=== PATIENT | male | born 1990 | race American Indian/Alaskan Native ===

== ENCOUNTER 2020-08-11 17:02 | Emergency (ER) | payer SELFPAY ==
--- NOTE | 2020-08-11 20:15 | Emergency Department Report ---
ED Rash HPI - HPI Chief Complaint: Skin Rash Stated Complaint: INFLAMMATION OF HANDS Duration: 2 Days Location: Upper Extremities (bilateral hands) Suspected Cause: Unknown Rash Symptoms: Yes Itching (Bilateral hands and neck), No Facial Swelling, No Tongue/Oral Swelling, No Breathing Difficulties, No Choking Sensation, No Wheezing/Dyspnea, No Peeling, No Blistering, No Fever, No Lightheaded, No Malaise, No Myalgias Severity: mild Other History: Patient is a 30-year-old -[place] male with no past medical history presents to the ED with complaint of acute onset persistent erythematous maculopapular itchy rashes on the hands bilaterally and also on the posterior neck for the last 2 days. Patient states that his has had simil ar symptoms about a week ago. Patient states that he does not remember anything that he may have been in contact with except for mixing chemicals at work. Patient denies fever, chills, nausea, vomiting, dizziness, syncope, cough, swollen lips or tongue, dysphagia, dysphonia, cough or wheezing, chest pain or shortness of breath and abdominal pain or diarrhea. Patient denies any new foods or detergents at home. ED Review of Systems ROS: Stated complaint: INFLAMMATION OF HANDS Other details as noted in HPI Constitutional: denies: chills, fever Eyes: denies: eye pain, eye discharge, vision change ENT: denies: ear pain, throat pain Respiratory: denies: cough, shortness of breath, wheezing Cardiovascular: denies: chest pain, palpitations Endocrine: no symptoms reported Gastrointestinal: denies: abdominal pain, nausea, diarrhea Genitourinary: denies: urgency, dysuria Musculoskeletal: denies: back pain, joint swelling, arthralgia Skin: rash (Diffuse bilateral mild erythematous maculopapular rashes on the hands bilaterally and also on the posterior neck), change in color, pruritus. denies: lesions Neurological: denies: headache, weakness, paresthesias Psychiatric: denies: anxiety, depression Hematological/Lymphatic: denies: easy bleeding, easy bruising ED Past Medical Hx - Past Medical History Previous Medical History?: No - Surgical History Past Surgical History?: No - Medications Home Medications: Home Medications Medication Instructions Recorded Confirmed Last Taken Type Famotidine [Pepcid] 20 mg PO BID #30 tablet 08/11/20 Unknown Rx Hydrocortisone 0.5% (Nf) 1 applicatio TP TID #1 tube 08/11/20 Unknown Rx [Hydrocortisone 0.5% OINT] diphenhydrAMINE [Benadryl CAP] 25 mg PO Q6HR PRN #30 capsule 08/11/20 Unknown Rx predniSONE [Deltasone] 40 mg PO QDAY #10 tab 08/11/20 Unknown Rx Rash Exam - Exam General: Vital signs noted. No distress. Alert and acting appropriately. HEENT: No Periorbital Edema, No Conjuctival Injection, No Chemosis, No Perioral Edema, No Tongue Edema, No Uvular Edema, No Compromised Airway, No Drooling Lungs: Yes Good Air Exchange (Normal Breath Sounds), No Wheezes, No Ronchi, No Stridor, No Cough, No Labored Respirations, No Retractions, No Use of Accessory Muscles, No Other Abnormal Lung Sounds Heart: Yes Regular, No Murmur Skin: Yes Urticarial Rash (Bilateral hands and posterior neck), Yes Maculopapular Rash (Bilateral hands and posterior neck), Yes Erythema (Bilateral hands and posterior neck), No Morbilliform rash, No Bulla(e), No Excoriations, No Weeping, No Tenderness, No Edema, No Encrustations Other: Positive: Abdomen Normal, Neurologic Normal, Musculoskeletal Normal ED Course Vital Signs 08/11/20 17:25 Temperature 98.1 F Pulse Rate 77 Respiratory 16 Rate Blood Pressure 124/87 O2 Sat by Pulse 99 Oximetry ED Medical Decision Making - Medical Decision Making This is a 30-year-old -[place] male with no past medical history presents to the ED with complaint of acute onset persistent erythematous maculopapular itchy rashes on the hands bilaterally and also on the posterior neck for the last 2 days. Patient states that his has had similar symptoms about a week ago. Patient states that he does not remember anything that he may have been in contact with except for mixing chemicals at work. In the ED, patient is alert and oriented x3 and is not in distress. Patient was treated for acute allergic reaction with oral steroids and Pepcid. Patient was discharged home on medications and was advised to follow-up with his primary care physician in 5 to 7 days for reevaluation. Patient was also advised return to the ED immediately if symptoms get worse. - Differential Diagnosis Allergic reaction; urticaria; irritant dermatitis; contact dermatitis Critical care attestation.: If time is entered above; I have spent that time in minutes in the direct care of this critically ill patient, excluding procedure time. ED Disposition Clinical Impression: Itching with irritation, Rash and nonspecific skin eruption Irritant contact dermatitis Qualifiers: Contact dermatitis trigger: other trigger Qualified Code(s): L24.89 - Irritant contact dermatitis due to other agents; L24.8 - Irritant contact dermatitis due to other agents Disposition: DC- TO HOME OR SELFCARE Is pt being admited?: No Does the pt Need Aspirin: No Condition: Stable Instructions: Contact Dermatitis (ED), Acute Rash (ED) Additional Instructions: Take medication with food, drink plenty of fluids and follow-up with your primary care physician in 5 to 7 days for reevaluation. Return to the ED immediately if symptoms get worse. Prescriptions: diphenhydrAMINE [Benadryl CAP] 25 mg PO Q6HR PRN #30 capsule PRN Reason: Allergy Symptoms predniSONE [Deltasone] 40 mg PO QDAY #10 tab Hydrocortisone 0.5% (Nf) [Hydrocortisone 0.5% OINT] 1 applicatio TP TID #1 tube Famotidine [Pepcid] 20 mg PO BID #30 tablet Referrals: [facility] [Provider Group] - 3-5 Days Time of Disposition: 20:17 Print Language: BURMESE
[2020-08-11] MEDS ORDERED: predniSONE 50 MG TAB PO ONE (20:19)
[2020-08-11] MEDS ORDERED: FAMOTIDINE 20 MG TAB PO ONE (20:19)
[2020-08-11 21:00] VITALS: BP 119/78
== END 2020-08-11 20:55 | disposition home or self-care (01) ==
LOC: ED 17:02
DX: L24.9 Irritant contact dermatitis, unspecified cause (principal); Z79.899 Other long term (current) drug therapy
CPT/HCPCS: 99282; J7512

== ENCOUNTER 2021-04-20 13:58 | Emergency (ER) | payer SELFPAY ==
[2021-04-20 15:01] VITALS: BP 137/85
[2021-04-20] MEDS ORDERED: TETANUS,DIPH,PERTUSS(ACELL) VACCINE 0.5 ML SYRINGE IM ONE (15:08)
--- NOTE | 2021-04-20 15:15 | Emergency Department Report ---
ED General Adult HPI - General Chief complaint: Wound/Laceration Stated complaint: WORK INJURY/LT WRIST Time Seen by Provider: 04/20/21 15:04 Source: patient Mode of arrival: Ambulatory Limitations: No Limitations - History of Present Illness Initial comments: 30-year-old -[place] male patient presents with laceration to left wrist today while at work. Patient states he cut his wrist on a metal pipe. He states his last tetanus vaccine is unknown. He denies any redness, difficulty moving his wrist, or numbness/tingling/weakness in his wrist or hand. -: Sudden - Related Data Previous Rx's Medication Instructions Recorded Last Taken Type Famotidine [Pepcid] 20 mg PO BID #30 tablet 08/11/20 Unknown Rx Hydrocortisone 0.5% (Nf) 1 applicatio TP TID #1 tube 08/11/20 Unknown Rx [Hydrocortisone 0.5% OINT] diphenhydrAMINE [Benadryl CAP] 25 mg PO Q6HR PRN #30 capsule 08/11/20 Unknown Rx predniSONE [Deltasone] 40 mg PO QDAY #10 tab 08/11/20 Unknown Rx cephALEXin [Keflex] 500 mg PO Q12HR 7 Days #14 cap 04/20/21 Unknown Rx Allergies Allergy/AdvReac Type Severity Reaction Status Date / Time No Known Allergies Allergy Unverified 08/11/20 20:39 ED Review of Systems ROS: Stated complaint: WORK INJURY/LT WRIST Other details as noted in HPI Musculoskeletal: denies: joint swelling, arthralgia Skin: denies: change in color Neurological: denies: numbness, paresthesias ED Past Medical Hx - Past Medical History Previous Medical History?: No - Surgical History Past Surgical History?: No - Social History Smoking Status: Current Every Day Smoker - Medications Home Medications: Home Medications Medication Instructions Recorded Confirmed Last Taken Type Famotidine [Pepcid] 20 mg PO BID #30 tablet 08/11/20 Unknown Rx Hydrocortisone 0.5% (Nf) 1 applicatio TP TID #1 tube 08/11/20 Unknown Rx [Hydrocortisone 0.5% OINT] diphenhydrAMINE [Benadryl CAP] 25 mg PO Q6HR PRN #30 capsule 08/11/20 Unknown Rx predniSONE [Deltasone] 40 mg PO QDAY #10 tab 10/09/20 Unknown Rx cephALEXin [Keflex] 500 mg PO Q12HR 7 Days #14 cap 04/20/21 Unknown Rx ED Physical Exam - General Limitations: No Limitations General appearance: alert, in no apparent distress - Head Head exam: Present: atraumatic, normocephalic - Eye Eye exam: Present: normal appearance - Respiratory Respiratory exam: Absent: respiratory distress - Cardiovascular Cardiovascular Exam: Present: regular rate - Neurological Exam Neurological exam: Present: alert, oriented X3 - Psychiatric Psychiatric exam: Present: normal affect, normal mood - Skin Skin exam: Present: warm, dry, normal color. Absent: intact (Approximately 3 cm diagonal laceration noted to left inner wrist; no active bleeding noted), rash ED Course Vital Signs 04/20/21 14:56 Temperature 98.3 F Pulse Rate 71 Respiratory 18 Rate Blood Pressure 137/85 O2 Sat by Pulse 100 Oximetry - Laceration /Wound Repair Wrist Wound's Depth, Shape: superficial, linear Wound Explored: no foreign body removed Irrigated w/ Saline (ccs): 50 Wound Repaired With: Steri-strips, Dermabond Layer Closure?: No Progress: No bleeding occurred. Patient tolerated procedure well without any immediate complications. ED Medical Decision Making - Medical Decision Making 30-year-old -[place] male patient presents with laceration to left wrist today while at work. Patient states he cut his wrist on a metal pipe. He states his last tetanus vaccine is unknown. He denies any redness, difficulty moving his wrist, or numbness/tingling/weakness in his wrist or hand. Tetanus updated. Dermabond and Steri-Strips used to repair wound. Will cover patient with Keflex given dirty pipe. Discussed wound care and strict return precautions in detail with patient who verbalized understanding. He is well- appearing his vitals are within normal limits he is stable for discharge home. Critical care attestation.: If time is entered above; I have spent that time in minutes in the direct care of this critically ill patient, excluding procedure time. ED Disposition Clinical Impression: Laceration of wrist Disposition: DC-01 TO HOME OR SELFCARE Is pt being admited?: No Condition: Stable Instructions: Sterile Tape Wound Care, Nonsutured Laceration Care Prescriptions: cephALEXin [Keflex] 500 mg PO Q12HR 7 Days #14 cap Referrals: [facility] [Provider Group] - 3-5 Days
== END 2021-04-20 15:50 | disposition home or self-care (01) ==
LOC: ED 13:58
DX: S61.512A Laceration without foreign body of left wrist, initial encounter (principal); F17.200 Nicotine dependence, unspecified, uncomplicated; Z79.899 Other long term (current) drug therapy; X58.XXXA Exposure to other specified factors, initial encounter; Y93.89 Activity, other specified; Y92.89 Other specified places as the place of occurrence of the external cause; Y99.0 Civilian activity done for income or pay
CPT/HCPCS: 90471; 90715

== ENCOUNTER 2022-05-12 13:39 | Emergency (ER) | payer SELFPAY ==
--- NOTE | 2022-05-12 15:35 | Emergency Department Report ---
ED General Adult HPI - General Chief complaint: Skin/Abscess/Foreign Body Stated complaint: POSSIBLE SPIDER BITE Time Seen by Provider: 05/12/22 15:17 Source: patient Mode of arrival: Ambulatory Limitations: No Limitations - History of Present Illness Initial comments: 32-year-old male reports to the ER with complaints of insect bite possible spider to the left arm. Patient reports noticing the swelling 1 day after being bitten by something. Patient reports no other acute symptoms. Denies fever, chills, weakness to arm. - Related Data Previous Rx's Medication Instructions Recorded Last Taken Type Famotidine [Pepcid] 20 mg PO BID #30 tablet 08/11/20 Unknown Rx Hydrocortisone 0.5% (Nf) 1 applicatio TP TID #1 tube 08/11/20 Unknown Rx [Hydrocortisone 0.5% OINT] diphenhydrAMINE [Benadryl CAP] 25 mg PO Q6HR PRN #30 capsule 08/11/20 Unknown Rx predniSONE [Deltasone] 40 mg PO QDAY #10 tab 08/11/20 Unknown Rx cephALEXin [Keflex] 500 mg PO Q12HR 7 Days #14 cap 04/20/21 Unknown Rx Amoxicillin/K Clav Tab [Augmentin 1 tab PO Q12HR 7 Days #14 tab 05/12/22 Unknown Rx 875 mg] Allergies Allergy/AdvReac Type Severity Reaction Status Date / Time No Known Allergies Allergy Unverified 08/11/20 20:39 ED Review of Systems ROS: Stated complaint: POSSIBLE SPIDER BITE Other details as noted in HPI Constitutional: denies: chills, fever Eyes: denies: eye pain, eye discharge, vision change ENT: denies: ear pain, throat pain Respiratory: denies: cough, shortness of breath, wheezing Cardiovascular: denies: chest pain, palpitations Endocrine: no symptoms reported Gastrointestinal: denies: abdominal pain, nausea, diarrhea Genitourinary: denies: urgency, dysuria Musculoskeletal: denies: back pain, joint swelling, arthralgia Skin: rash, other (AbscessLike structure to the proximal area of the left forearm.). denies: lesions Neurological: denies: headache, weakness, paresthesias Psychiatric: denies: anxiety, depression Hematological/Lymphatic: denies: easy bleeding, easy bruising ED Past Medical Hx - Past Medical History Previous Medical History?: No - Surgical History Past Surgical History?: No - Social History Smoking Status: Never Smoker - Medications Home Medications: Home Medications Medication Instructions Recorded Confirmed Last Taken Type Famotidine [Pepcid] 20 mg PO BID #30 tablet 08/11/20 Unknown Rx Hydrocortisone 0.5% (Nf) 1 applicatio TP TID #1 tube 08/11/20 Unknown Rx [Hydrocortisone 0.5% OINT] diphenhydrAMINE [Benadryl CAP] 25 mg PO Q6HR PRN #30 capsule 08/11/20 Unknown Rx predniSONE [Deltasone] 40 mg PO QDAY #10 tab 08/11/20 Unknown Rx cephALEXin [Keflex] 500 mg PO Q12HR 7 Days #14 cap 04/20/21 Unknown Rx Amoxicillin/K Clav Tab [Augmentin 1 tab PO Q12HR 7 Days #14 tab 05/12/22 Unknown Rx 875 mg] ED Physical Exam - General Limitations: No Limitations General appearance: alert, in no apparent distress - Head Head exam: Present: atraumatic, normocephalic - Eye Eye exam: Present: normal appearance - ENT ENT exam: Present: mucous membranes moist - Neck Neck exam: Present: normal inspection - Respiratory Respiratory exam: Present: normal lung sounds bilaterally. Absent: respiratory distress - Cardiovascular Cardiovascular Exam: Present: regular rate, normal rhythm. Absent: systolic murmur, diastolic murmur, rubs, gallop - GI/Abdominal GI/Abdominal exam: Present: soft, normal bowel sounds - Rectal Rectal exam: Present: deferred - Extremities Exam Extremities exam: Present: normal inspection - Back Exam Back exam: Present: normal inspection - Neurological Exam Neurological exam: Present: alert, oriented X3 - Psychiatric Psychiatric exam: Present: normal affect, normal mood - Skin Skin exam: Present: warm, dry, intact, normal color. Absent: rash - Expanded Skin Exam Expanded Distribution of rash: LUE (Proximal left forearm with abscess-like structure w ith warmth presentabscess is deep within the tissue not I&D able) Description of rash: Present: tenderness, erythematous, swelling ED Course Vital Signs 05/12/22 14:28 Temperature 98.0 F Pulse Rate 62 Respiratory 14 Rate Blood Pressure 128/86 O2 Sat by Pulse 99 Oximetry ED Medical Decision Making - Medical Decision Making 32-year-old male reports to the ER with abscess-like structure to the left proximal forearm. Patient reports possible insect bite about 2 days ago and he reports yesterday having increased swelling to his left forearm. Patient reports no other acute symptoms at this time. Abscess-like structure is not able to be I&D as abscess is not superficial. No streaking noted from area of abscess. Warm and tenderness is noted with swelling. The area suspected abscess is less than 2.5 cm in diameter. Patient still has full range of motion of the joint no streaking is noted. No open wounds or other lesions noted Patient stable for discharge home patient to be started on Bactrim for antibiotic treatment. Critical care attestation.: If time is entered above; I have spent that time in minutes in the direct care of this critically ill patient, excluding procedure time. ED Disposition Clinical Impression: Cellulitis and abscess of upper extremity Disposition: 01 HOME / SELF CARE / HOMELESS Is pt being admited?: No Condition: Stable Prescriptions: Amoxicillin/K Clav Tab [Augmentin 875 mg] 1 tab PO Q12HR 7 Days #14 tab Time of Disposition: 15:35
[2022-05-12 19:23] VITALS: BP 132/78
== END 2022-05-12 19:21 | disposition home or self-care (01) ==
LOC: ED 13:39
DX: L02.414 Cutaneous abscess of left upper limb (principal); L03.114 Cellulitis of left upper limb
CPT/HCPCS: 99282